=== PATIENT | male | born 1965 ===

== ENCOUNTER 2024-07-28 07:57 | Day surgery (SDC) | payer BC ==
[2024-07-28 08:19] LABS: Absolute Eosinophils 0.1 K/uL (0-0.5); Absolute Lymphocytes (CBC) 1.9 K/uL (0.7-4.9); Absolute Monocytes 0.5 K/uL (0.1-1.3); Absolute Neutrophil 3.1 K/uL (1.8-8.0); Basophils % 0.6 % (0-1.3); Eosinophils % 1.8 % (0-4.4); Hematocrit 41.9 % (39.6-49.0); Hemoglobin 14.4 g/dL (13.6-17.9); Lymphocytes % 33.6 % (15.3-44.8); MCH 32.3 pg (27.0-35.0); MCHC 34.5 g/dL (32.0-36.0); MCV 93.6 fL (80-100); MPV 7.1 fL (7.6-11.3); Monocytes % 8.3 % (3.3-12.3); Neutrophils % 55.7 % (41.7-73.7); Nucleated Red Blood Cells % 0.1 % (0-0); Platelets 281 thou/uL (152-406); RBC Red Blood Cell Count 4.47 M/uL (4.33-5.43); Red Cell Distribution Width 12.7 % (12.1-15.2)
[2024-07-28] MEDS: Ringers Lactate 1,000 ML IV ONE (08:50)
[2024-07-28] MEDS ORDERED: FENTANYL CITR 100 MCG/2 ML ONE (09:46)
[2024-07-28] MEDS ORDERED: MIDAZOLAM HCL 2 MG/2 ML INJ ONE (09:46)
[2024-07-28] MEDS ORDERED: LIDOCAINE 1% MPF 5 ML VIAL ONE (09:46)
[2024-07-28] MEDS ORDERED: propofoL 200 MG/20 ML VIAL IV ONE (09:46)
[2024-07-28] MEDS ORDERED: ONDANSETRON 4 MG/2 ML VIAL ONE (09:47)
[2024-07-28] MEDS ORDERED: ROCURONIUM 50 MG/5 ML VIAL IV ONE (09:47)
[2024-07-28] MEDS ORDERED: KETOROLAC 30 MG/ML INJ ONE (10:26)
--- NOTE | 2024-07-28 10:35 | RAD REPORT ---
EXAMINATION: TWO VIEW CHEST XR CLINICAL INDICATION: Male, 59 years old. [facility] PRE-OP Hypertension TECHNIQUE: 2 view radiographs of the chest were performed. COMPARISON: No prior exam. FINDINGS: The lungs are well inflated and clear. No pneumothorax or sizable effusion. The heart is normal in si ze. Mediastinal contours are unremarkable. IMPRESSION: No acute or significant abnormalities.
[2024-07-28] MEDS: CEFAZOLIN SODIUM 1 GM/VIAL ONE (10:45)
[2024-07-28] MEDS ORDERED: GLYCOPYRROLATE 0.2 MG/ML SYR ONE ×2 (10:55→11:10)
--- NOTE | 2024-07-28 11:05 | EKG ---
Test Date: 2024-07-28 Test Time: 09:19:34 Analysis Reporting Developer: CRISTOFER MEASUREMENT RESULTS: Intervals: Rate: 63 IL: 182 QRSD: 86 QT: 412 QTc: 421 [place]: P: 43 IL: 182 QRS: 45 T: 55 INTERPRETIVE STATEMENTS: Normal sinus rhythm Normal ECG Compared to ECG 08/29/2016 07:20:01 Sinus bradycardia no longer present Left ventricular hypertrophy no longer present Electronically Signed On 07-28-24 11:04:53 CLINICAL RESEARCHER by Indra Mares
[2024-07-28] MEDS ORDERED: NEOSTIGMINE 1 MG/ML -10 ML VIAL ONE (11:10)
--- NOTE | 2024-07-28 11:20 | P.BOP ---
Preoperative diagnosis: right inguinal tender hernia Postoperative diagnosis: same Primary procedure: Laparoscopic repair of right inguinal tender hernia with mesh Estimated blood loss: <10cc Specimen: none Findings: as above Anesthesia: General Complications: None Implants: medium mesh Transferred to: Recovery Room Condition: Good
[2024-07-28 12:07] VITALS: O2SAT 100
[2024-07-28] MEDS ORDERED: TAMSULOSIN 0.4 MG SR CAP ONE (12:20)
[2024-07-28] MEDS: TAMSULOSIN 0.4 MG SR CAP PO ONE (12:24)
[2024-07-28 13:11] VITALS: BP 118/82; TEMP 96.9
--- NOTE | 2024-07-28 23:41 | OP ---
Date of Procedure: 07/28/2024 Surgeon: Osman Murphy MD Preoperative Diagnosis: Tender right inguinal hernia. Postoperative Diagnosis: Tender right inguinal hernia. Procedure: Laparoscopic repair of tender right inguinal hernia with mesh. Estimated Blood Loss: Less than 10 cc. Specimen: None. Anesthesia: General plus local. Findings: Right inguinal hernia. Implant: Medium 3DMax. Indication: This is a case of a 59-year-old patient who came to us with a right inguinal hernia. Th e benefits, alternatives, and risks of laparoscopic versus open repair with mesh fully explained, whi ch include, but not limited to infection, bleeding, damage to adjacent structures, anesthesia complic ation, recurrence, CT, and even . He also understands this may not relieve symptoms. He might need more than one surgical intervention. He also understands we may be using mesh in that region. The pros and cons of mesh placement discussed with the patient and all the questions were answered to his satisfaction. He signed a consent. Procedure In Detail: The area of concern was marked by me on the patient in the holding room. The p atient was brought to the operating room, placed in supine position. Anesthesia was done without com plication. The abdomen was prepped and draped in sterile fashion. Local anesthesia was a pplied followed by sharp incision of the skin in the infraumbilical region. Incision was carried fadi n until we found the anterior rectus sheath, which was opened until we have posterior rectus sheath. The muscle retracted laterally to expose the posterior rectus sheath. The extraperitoneal space was gently developed with the help of blunt dissection and a balloon tip trocar was placed in that regio n directed toward the pubic symphysis. Laparoscope was inserted. The balloon was inflated under dir ect visualization to create the extraperitoneal space. Then, the balloon was deflated. We insufflat ed the area, and under direct visualization again, we selected an area where we were going to put a 5 mm trocar and another one nursing home between first and second one. The preperitoneal space was further developed by exposing the inferior epigastric vessels keeping them anterior. The Jose ligament wa s dissected laterally to the junction with the iliac veins. The dissection continued inferiorly to t he iliopubic tract avoiding damage to the femoral branch of the genitofemoral nerve and lateral femor al cutaneous nerve. The cord structures were carefully skeletonized until the hernia sac was clearly identified and retracted gently into the peritoneal cavity. At that moment, I proceeded to select a medium 3D mesh to place in that region. It was rolled and passed through a bigger trocar and unroll ed to completely cover direct and indirect spaces. The mesh was secured in place lateral and superio r to the iliopubic tract and inferior medial to the Jose ligament with the help of SorbaFix fixatio n device. After ensuring adequate hemostasis, insufflation was stop, allowed the air to escape as we were gently holding the mesh in place and making sure the hernia sac was still reduced. After that, I proceeded to carefully remove all the trocars, closed the anterior rectus sheath with #1 Vicryl an d then closed this skin with subcutaneous tissue. Sponge count and instrument counts were correct. At the end of the case, testicles were within the scrotum. Patient tolerated the procedure well. Th e patient was sent to recovery in stable condition. Condition: Stable. Disposition: Home. Activity: As tolerated. No lifting. Follow up in my office in 1 week. Call for appointment [phone]. Keep area dry for 48 hours, then m ay shower. Keep intact. Cool compress into the right inguinal region for 24 hours. Medication were called to his pharmacy. SHILOH/KEYSHA Voice ID: [id number] Report ID: [id number]
== END 2024-07-28 13:12 | disposition home or self-care (01) ==
LOC: OR 07:57
PROVIDERS: ATTEND Surgery
PROC: 0YU54JZ Supplement Right Inguinal Region with Synthetic Substitute, Percutaneous Endoscopic Approach (ICD-10-PCS; principal; 2024-07-28 11:45)
DX: K40.90 Unilateral inguinal hernia, without obstruction or gangrene, not specified as recurrent (principal)
CPT/HCPCS: 93005; 85025; 80048; 36415; 71046; 49650; J2704; J2710; J2003; J2250; J3010; J2405; J7120; J0690; C1781